=== PATIENT | male | born 1940 | race Caucasian/White ===

== ENCOUNTER → 2021-06-02 | Day surgery (SDC) | payer MEDICARE, BC ==
[~2021-06-02] MED LIST: Ketamine 200 MG/20 ML MDV ONE; Lactated Ringers 1,000 ML IV SCH; Lidocaine 2% 5 ML SDV ONE; Phenylephrine 1% 10 MG/ML SDV ONE; Propofol 200 MG/20 ML SDV ONE; fentaNYL 100 MCG/2 ML SDV ONE
== END ==
LOC: CC.SDS 13:34
PROVIDERS: ATTEND Family Medicine
DX: K22.70 Barrett's esophagus without dysplasia (principal); K29.80 Duodenitis without bleeding; K22.89 Other specified disease of esophagus; K21.9 Gastro-esophageal reflux disease without esophagitis; R05.9 Cough, unspecified; E66.9 Obesity, unspecified; E03.9 Hypothyroidism, unspecified; I10 Essential (primary) hypertension; F41.9 Anxiety disorder, unspecified; M10.9 Gout, unspecified; Z88.0 Allergy status to penicillin; Z98.890 Other specified postprocedural states; Z79.899 Other long term (current) drug therapy
CPT/HCPCS: 00731; 87081; 88305; J2370; J2704; J3010; J7120

== ENCOUNTER → 2021-06-30 | Day surgery (SDC) | payer MEDICARE, BC ==
[~2021-06-30] MED LIST changes: -Lidocaine 2% 5 ML SDV ONE; +Naloxone 2 MG/2 ML Syringe ONE; +ePHEDrine 50 MG/ML SDV ONE
== END ==
LOC: CC.SDS 08:39
PROVIDERS: ATTEND Family Medicine
DX: Z12.11 Encounter for screening for malignant neoplasm of colon (principal); D12.0 Benign neoplasm of cecum; D12.3 Benign neoplasm of transverse colon; D12.2 Benign neoplasm of ascending colon; K57.30 Diverticulosis of large intestine without perforation or abscess without bleeding; K64.9 Unspecified hemorrhoids; R05.3 Chronic cough; M72.0 Palmar fascial fibromatosis [Dupuytren]; K21.9 Gastro-esophageal reflux disease without esophagitis; M10.9 Gout, unspecified; I10 Essential (primary) hypertension; E03.9 Hypothyroidism, unspecified; Z88.0 Allergy status to penicillin; Z88.8 Allergy status to other drugs, medicaments and biological substances; Z79.899 Other long term (current) drug therapy; Z79.890 Hormone replacement therapy; Z98.890 Other specified postprocedural states
CPT/HCPCS: 00812; J2310; J2370; J2704; J3010; J7120

== ENCOUNTER 2023-04-23 15:29 | Observation (INO) | payer BC, MEDICARE ==
[2023-04-23] MEDS ORDERED: Polyethylene Glycol 3350 Powder 17 GM Packet PO PRN (16:23)
[2023-04-23] MEDS ORDERED: Acetaminophen 325 MG Tab PO PRN (16:23)
[2023-04-23] MEDS ORDERED: Docusate Sodium 100 MG Cap PO PRN (16:23)
[2023-04-23] MEDS ORDERED: Ondansetron 4 MG Tab.DIS PO PRN (16:23)
[2023-04-23] MEDS ORDERED: Ondansetron 4 MG/2 ML SDV IV PRN (16:23)
[2023-04-23] MEDS ORDERED: Meclizine 12.5 MG Tab PO PRN (16:26)
[2023-04-23 16:40] LABS: BASOPHILS ABSOLUTE AUTO 0.03 10^3/uL (0.00-0.50); BASOPHILS PERCENT AUTO 0.3 % (0-1); EOSINOPHILS ABSOLUTE AUTO 0.39 10^3/uL (0.00-1.50); EOSINOPHILS PERCENT AUTO 4.3 % (0-6); HEMATOCRIT 44.7 % (42.0-52.0); HEMOGLOBIN 15.3 g/dL (14.0-18.0); IMMATURE GRAN ABSOLUTE AUTO 0.03 10^3/uL (0.00-0.49); IMMATURE GRAN PERCENT AUTO 0.3 % (0.0-4.9); LYMPHOCYTES ABSOLUTE AUTO 0.86 10^3/uL (0.60-5.00); LYMPHOCYTES PERCENT AUTO 9.5 % (24-44); MEAN CORPUSCULAR HEMOGLOBIN 31.6 pg (27.0-32.0); MEAN CORPUSCULAR HGB CONC 34.2 g/dL (32.0-36.0); MEAN CORPUSCULAR VOLUME 92.4 fL (83.0-97.0); MONOCYTES ABSOLUTE AUTO 0.75 10^3/uL (0.00-1.50); MONOCYTES PERCENT AUTO 8.3 % (0-10); NEUTROPHILS ABSOLUTE AUTO 6.97 x10^3/uL (1.80-8.00); NEUTROPHILS PERCENT AUTO 77.3 % (41-71); PLATELET COUNT,PLT 242 10^3/uL (150-400); RED BLOOD CELL COUNT 4.84 x10^6/uL (4.50-6.00)
[2023-04-23 16:54] LABS: ALANINE AMINOTRANSFERASE,ALT 17 U/L (12-78); ALBUMIN 3.9 g/dL (3.4-5.0); ALKALINE PHOSPHATASE 103 U/L (46-116); ASPARTATE AMNIOTRANSFERASE,AST 13 U/L (15-37); BILIRUBIN TOTAL 0.7 mg/dL (0.0-1.0); BLOOD UREA NITROGEN,BUN 28 mg/dL (7-18); CALCIUM 9.4 mg/dL (8.4-10.1); CARBON DIOXIDE,CO2 30 mmol/L (21-32); CHLORIDE,CL 97 mEq/L (98-106); CREATININE 1.3 mg/dL (0.7-1.3); GLUCOSE RANDOM 120 mg/dL (75-99); MAGNESIUM 2.2 mg/dL (1.8-2.4); POTASSIUM,K 4.1 mEq/L (3.5-5.0); PROTEIN TOTAL,TP 7.8 g/dL (6.4-8.2); SODIUM,NA 134 mEq/L (136-145)
[2023-04-23] MEDS ORDERED: Non-Formulary Medication 1 Each (Cyclobenzaprine Hcl [Cyclobenzaprine Hcl] 5 MG Tablet) PO PRN (16:54)
[2023-04-23] MEDS ORDERED: Non-Formulary Medication 1 Each (Alprazolam [Alprazolam] 0.5 MG Tablet) PO PRN (16:54)
[2023-04-23] MEDS ORDERED: Benzonatate 100 MG Cap PO PRN (16:54)
[2023-04-23 16:56] LABS: ESTIMATED GFR 56 mL/min (>=60)
[2023-04-23] MEDS: Sodium Chloride 0.9% 1,000 ML IV SCH (17:18)
[2023-04-23] MEDS: Celecoxib 100 MG Cap PO SCH (19:43)
[2023-04-23] MEDS ORDERED: Non-Formulary Medication 1 Each (Ipratropium Bromide [Ipratropium Bromide] 30 ML Spray) NS SCH (20:00)
[2023-04-24] MEDS: Sodium Chloride 0.9% 1,000 ML IV SCH (06:45)
[2023-04-24] MEDS ORDERED: Levothyroxine 50 MCG Tab PO SCH (07:00)
[2023-04-24] MEDS: Celecoxib 100 MG Cap PO SCH (07:33)
[2023-04-24 07:45] LABS: BASOPHILS ABSOLUTE AUTO 0.02 10^3/uL (0.00-0.50); BASOPHILS PERCENT AUTO 0.4 % (0-1); EOSINOPHILS ABSOLUTE AUTO 0.37 10^3/uL (0.00-1.50); EOSINOPHILS PERCENT AUTO 6.6 % (0-6); HEMATOCRIT 39.2 % (42.0-52.0); HEMOGLOBIN 13.4 g/dL (14.0-18.0); IMMATURE GRAN ABSOLUTE AUTO 0.01 10^3/uL (0.00-0.49); IMMATURE GRAN PERCENT AUTO 0.2 % (0.0-4.9); LYMPHOCYTES ABSOLUTE AUTO 1.11 10^3/uL (0.60-5.00); LYMPHOCYTES PERCENT AUTO 19.9 % (24-44); MEAN CORPUSCULAR HEMOGLOBIN 31.7 pg (27.0-32.0); MEAN CORPUSCULAR HGB CONC 34.2 g/dL (32.0-36.0); MEAN CORPUSCULAR VOLUME 92.7 fL (83.0-97.0); MONOCYTES ABSOLUTE AUTO 0.67 10^3/uL (0.00-1.50); NEUTROPHILS ABSOLUTE AUTO 3.41 x10^3/uL (1.80-8.00); NEUTROPHILS PERCENT AUTO 60.9 % (41-71); PLATELET COUNT,PLT 202 10^3/uL (150-400); RED BLOOD CELL COUNT 4.23 x10^6/uL (4.50-6.00); WHITE BLOOD CELL COUNT,WBC 5.6 10^3/uL (4.0-11.0)
[2023-04-24 07:47] LABS: APPEARANCE,URINE CLEAR (CLEAR); BILIRUBIN,URINE NEGATIVE (NEGATIVE); COLOR,URINE YELLOW (YELLOW); GLUCOSE,URINE NEGATIVE (NEGATIVE); KETONES,URINE NEGATIVE (NEGATIVE); LEUKOCYTE ESTERASE,URINE NEGATIVE (NEGATIVE); NITRITE,URINE NEGATIVE (NEGATIVE); OCCULT BLOOD,URINE NEGATIVE (NEGATIVE); PROTEIN,URINE NEGATIVE (NEGATIVE); UROBILINOGEN,URINE 0.2 EU/dL (0.2-1.0)
[2023-04-24] MEDS ORDERED: amLODIPine 2.5 MG Tab PO SCH (08:00)
[2023-04-24] MEDS ORDERED: Allopurinol 300 MG Tab PO SCH (08:00)
[2023-04-24] MEDS ORDERED: Cholecalciferol (Vitamin D3) 25 MCG Tab PO SCH (08:00)
[2023-04-24] MEDS ORDERED: Non-Formulary Medication 1 Each (Fluticasone Furoate [Arnuity Ellipta] 100 MCG Blst.W.Dev) IH SCH (08:00)
[2023-04-24] MEDS ORDERED: Fluticasone NASAL Spray 16 GM Bottle NASBOTH SCH (08:00)
[2023-04-24] MEDS ORDERED: Hydrochlorothiazide/Triamterene 25-37.5 Tab PO SCH (08:00)
[2023-04-24] MEDS ORDERED: Pantoprazole 40 MG Tab.CR PO SCH (08:00)
[2023-04-24 08:10] LABS: CALCIUM 8.7 mg/dL (8.4-10.1); CREATININE 1.1 mg/dL (0.7-1.3); EST CRCL DRUG DOSING (CG) 62.27 mL/min; POTASSIUM,K 4.1 mEq/L (3.5-5.0)
== END 2023-04-24 12:50 | disposition home or self-care (01) ==
LOC: CC.CT 15:29 → UNDOADMOB 16:08 → CC.MS 16:08
PROVIDERS: ADMIT Nurse Practitioner; ATTEND Nurse Practitioner
DX: H81.10 Benign paroxysmal vertigo, unspecified ear (principal); I10 Essential (primary) hypertension; K21.9 Gastro-esophageal reflux disease without esophagitis; E03.9 Hypothyroidism, unspecified; J32.9 Chronic sinusitis, unspecified; Z20.822 Contact with and (suspected) exposure to COVID-19; Z79.890 Hormone replacement therapy; Z79.899 Other long term (current) drug therapy; Z88.0 Allergy status to penicillin
CPT/HCPCS: 36415; 70450; 80048; 80053; 81003; 83735; 84484; 85025; 87804; 93005; 97161-GP; A9270-GY; G0378; J7030; U0002